=== PATIENT | female | born 1965 | race Caucasian/White ===

== ENCOUNTER → 2023-06-12 11:18 | Outpatient (REF) | payer OTHER, SELFPAY | LOC: WDC 11:18 | PROVIDERS: ATTENDING PHYSICIAN Internal Medicine | DX: Z12.31 Encounter for screening mammogram for malignant neoplasm of breast (principal) | CPT/HCPCS: 77063; 77067 ==

== ENCOUNTER 2024-01-13 22:56 | Inpatient (IN) | payer OTHER, SELFPAY ==
[2024-01-13] VITALS (8 sets, daily range): BP systolic 122–153; BP diastolic 82–116; BMI 42.6; BMI 41.2
--- NOTE | 2024-01-13 19:56 | ED.GENMED ---
History of Present Illness
General
Chief Complaint: Breathing Problem
Time Seen by Provider: 01/13/24 19:53
History of Present Illness
History of Present Illness:
HPI: Patient presents with shortness of breath over the last few days. He feels that his symptoms worsen with exertion when she lays down flat. She has a history of asthma but does not think this is asthma related. She reports having an x-ray at
urgent care. They did not give any breathing treatments at urgent care. She has had some lower extremity edema over the last few weeks. She had some left-sided anterior chest discomfort a few days ago but that went away.
EXAM:
GENERAL: Well appearing in minimal distress
HEENT: Moist oral mucosa
CARDIOVASCULAR: No murmurs, normal heart rate, regular rhythm, No chest wall tenderness
PULMONARY: Very mild respiratory distress, breath sounds are clear but somewhat diminished with no wheeze
ABDOMEN: Soft with no peritoneal signs, no tenderness
NEUROLOGIC: Excellent strength all extremities, no coordination deficits
PSYCHIATRIC: Appropriate mental status, normal insight and judgement
EXTREMITIES: Nontender, trace lower extremity edema, moves all extremities equally
SKIN: No rash, no lesions
TIME OF INITIAL ENCOUNTER: 8 PM
NUMBER AND COMPLEXITY OF PROBLEMS ADDRESSED AT THE ENCOUNTER
� Chronic conditions affecting care: Asthma
� Acute Exacerbation and/or Progression of Chronic Illness: This is an acute problem
� Differential Diagnosis includes: PE, asthma exacerbation, reactive airway disease, pneumonia, viral syndrome
AMOUNT AND/OR COMPLEXITY OF DATA TO BE REVIEWED AND ANALYZED
� I performed an independent evaluation of and my interpretation is:
EKG: Sinus 114, nonspecific ST abnormality, IVCD
CT: CT shows no PE however there is signs of a right sided pleural effusion
X-rays:
Laboratory Studies: Troponin 0.016 and BNP 10,800, of note bicarb is only 16 and potassium is 5.7 CBC is relatively unremarkable.
Other:
� Review of other/old records: The patient was seen here in the Emergency Department 2018 related to vomiting and at that time was relatively unremarkable
� Clinical information was obtained by an independent historian: I spoke to family at bedside
� Prescriptions/Medications Considered but not given:
� Further testing considered but not performed:
RISK OF COMPLICATIONS AND/OR MORBIDITY OR MORTALITY OF PATIENT MANAGEMENT
� Social determinants of health affecting care: Lives at home
� Discussion with other providers: Hospitalist, Dr. Santamaria for admission at 10:12 PM
� Escalation of care including admission/observation vs risk of discharge considered: The patient presents with shortness of breath. She is tachycardic. She is orthopneic and had lower extremity edema. BNP markedly
elevated�suspect CHF. Potassium also noted to be elevated and she was given albuterol, Lokelma, and Lasix. Bicarb also noted to be low. CTA has ruled out PE but she also does have a small pleural effusion on imaging.
Past History
Past History
ED Past Medical History: Asthma (typiclly uses inhaler as needed and hasn't needed it in several months.)
ED Past Surgical History: Gynecological
Social History
Tobacco: Non-smoker
Alcohol: Occasional
Personal:
Living: with family
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
Phy Exam
Physical Exam
Physical Exam:
See HPI
Scores
Heart Failure Risk
Heart Failure Risk Score: Not Applicable
Course
Orders/Labs/Results
Orders:
Orders
01/13/24 19:47
ECG [Electrocardiogram (*1)] Urgent
Reason for Study: Shortness of Breath
EKG- Treatment ONCE
01/13/24 20:02
CT Chest Pe Study Urgent
Comment:
Reason For Exam: DEVI/SOB, clear lungs
01/13/24 20:03
Ipratropium/Albuterol Sulfate [Duoneb] 3 ml INH R NOW ONE
01/13/24 20:05
Basic Metabolic Panel Urgent
Complete Blood Count/With Diff Urgent
Manual Differential Urgent
NT-proBNP Urgent
Troponin I Urgent
01/13/24 22:05
Furosemide [Lasix] 40 mg IV NOW STA
01/13/24 22:06
Sodium Zirconium Cyclosilicate [Lokelma] 10 gram PO NOW STA
Abnormal Lab Results
01/13/24
20:05
WBC 11.5 H 10^3/uL
(4.8-10.8)
MCHC 32.6 L g/dL
(33.0-37.0)
MPV 11.3 H fL
(7.4-10.4)
Abs Neuts (Manual) 8.0 H 10^3/uL
(1.4-6.5)
Lymphocytes (Manual) 14 L %
(20-51)
Eosinophils (Manual) 10 H %
(0-6)
Potassium 5.7 H mmol/L
(3.5-5.1)
Carbon Dioxide 16 L mmol/L
(22-30)
BUN 28 H mg/dl
(7-17)
Glucose 114 H mg/dl
(70-99)
01/13/24 20:05
01/13/24 20:05
Vital Signs
Initial and Last Documented VS:
Initial Vital Signs
Temp Pulse Resp BP Pulse Ox
97.6 F 112 20 148/105 95
01/13/24 19:40 01/13/24 19:40 01/13/24 19:40 01/13/24 19:40 01/13/24 19:40
Last Documented Vital Signs
Temp Pulse Resp BP Pulse Ox
97.6 F 100 22 152/98 93
01/13/24 19:40 01/13/24 22:00 01/13/24 22:00 01/13/24 22:00 01/13/24 22:00
*Critical Care Note
Total Time (30-74mins, 75-104mins- exclusive of procedures): Not Applicable
ED Attending Note
-
Portions of this chart may have been created with voice recognition software.� Occasional wrong word or��sound alike� substitutions may have occurred due to the inherent limitations of voice recognition software.
Discharge Plan
Departure
Patient Disposition: Admit
Date of Disposition: 01/13/24
Time of Disposition: 22:12
Presentation/result/management discussed w/ accepting MD/DO: Hospitalist
Discharge Problem:
Acute dyspnea
Prescriptions:
No Action
methylprednisolone [Medrol (Larry)] 4 MG tablets,dose pack
4 tab PO . DIRECT Qty: 1 0RF
Rx Instructions:
.
benzonatate 100 MG capsule
100 mg PO TIDPRN PRN (Reason: cough) Qty: 30 0RF
albuterol sulfate 90 MCG/PUFF HFA aerosol inhaler
1 puff inhalation R Q4HPRN PRN (Reason: wheezing) Qty: 1 0RF
ondansetron 4 MG tablet,disintegrating
4 mg PO Q8HPRN PRN (Reason: Nausea/Vomiting) Qty: 10 0RF
Referrals:
Brad Murray MD [Family Provider] -
Interventions
Interventions:
*Risk Screen - Suicide Last Done: 01/13/24 19:40
*General Assessment Last Done: 01/13/24 19:40
*Neglect/Abuse Screening Last Done: 01/13/24 19:40
ED- Fall Risk Assessment Last Done: 01/13/24 19:56
ED- Cardiac Assessment Last Done: 01/13/24 19:56
ED- Pulmonary Assessment Last Done: 01/13/24 19:56
Discharge Date and Time
Print Language: ISRAELI
[2024-01-13] MEDS: DUONEB 3 ML INH (20:09)
[2024-01-13 20:29] LABS: Hematocrit 41.7 % (37.0-47.0); Hemoglobin 13.6 g/dL (12.0-16.0); Mean Corp Hgb Conc. 32.6 g/dL (33.0-37.0); Mean Corpuscular Volume 91.9 fL (81.0-99.0); Mean Platelet Volume 11.3 fL (7.4-10.4); Platelet Count 262 10^3/uL (130-400); Red Blood Cell Count 4.54 10^6/uL (4.20-5.40); Red Cell Dist. Width 14.4 % (11.5-14.5); White Blood Cell Count 11.5 10^3/uL (4.8-10.8)
[2024-01-13 20:31] LABS: Blood Urea Nitrogen 28 mg/dl (7-17); Calcium 9.9 mg/dl (8.4-10.2); Carbon Dioxide 16 mmol/L (22-30); Chloride 106 mmol/L (98-107); Estimated Creatinine Clearance 76 ml/min; Glucose 114 mg/dl (70-99); Potassium 5.7 mmol/L (3.5-5.1); Sodium 137 mmol/L (135-145); eGFR > 60.00
[2024-01-13 20:37] LABS: NT-proBNP 10800 pg/ml; Troponin I 0.016 ng/ml
[2024-01-13 20:41] LABS: Band Neutrophils 0 % (0-3); Eosinophils 10 % (0-6); Lymphocytes 14 % (20-51); Monocytes 6 % (2-9); Normal RBC Morphology Yes; Platelets Checked Yes; Segmented Neutrophils 70 % (42-75); Total Cells Counted 100
[2024-01-13] MEDS: LASIX 40 MG IV (22:10)
[2024-01-13] MEDS: LOKELMA 10 GRAM PO (22:10)
--- NOTE | 2024-01-13 22:45 | HPS.HSE ---
Family Physician
-
Family Physician: Brad Murray
Chief Complaint
-
shortness of breath
History of Present Illness
58-year-old female past medical history of asthma presenting with shortness of breath over the past few weeks. Shortness of breath occurs when she lies down flat and when she exerts herself. She has had increased lower extremity edema. She had
left-sided chest pain described as pressure which radiated to her arm a few days ago while she was trying to sleep which spontaneously went away.
She denies any fevers or chills. She denies any cough. She denies any sore throat or runny nose. She did have a viral infection 1 month ago which had resolved.
Her father had a history of congestive heart failure.
She denies smoking. She drinks alcohol occasionally. She denies any drugs.
Medical History
Past Medical History
Past Medical History: Reports Other (asthma)
Past Surgical History: Reports Other (Uterine fibroid surgery)
Social History
Tobacco: Non-smoker
Alcohol: Occasional
Drug: None
Family History
Family History: Other (CHf father )
Allergies / Home Medications
Allergies reflects when Allergies were last updated in [facility].
Home Medications with original date entered in [facility]
Allergy/Medication List:
Allergies
Allergy/AdvReac Type Severity Reaction Status Date / Time
No Known Allergies Allergy Verified 01/13/24 19:40
Home Medications
albuterol sulfate 90 mcg/actuation aerosol inhaler 1 puff inhalation R Q4HPRN PRN wheezing ##1 06/24/13
benzonatate 100 mg capsule 100 mg PO TIDPRN PRN cough #30 caps 06/24/13
methylprednisolone 4 mg tablets in a dose pack (Medrol (Larry)) 4 tab (4 x 4 mg) PO . DIRECT ##1 06/24/13
ondansetron 4 mg disintegrating tablet 4 mg PO Q8HPRN PRN Nausea/Vomiting #10 tabs 09/21/17
Review of Systems
-
History Source: Patient
A 12 point ROS was completed and negative except as noted: Yes
Constitutional: Reports No Symptoms
EENT: Reports No Symptoms
Respiratory: Reports See HPI
Cardiac: Reports See HPI
Abdomen/GI: Reports No Symptoms
: Reports No Symptoms
Musculoskeletal: Reports No Symptoms
Skin: Reports No Symptoms
Neurological: Reports No Symptoms
Endocrine: Reports No Symptoms
Hematologic/Lymphatic: Reports No Symptoms
Psych: Reports No Symptoms
Physical Exam
Vital Signs
Vital Signs
Temp Pulse Resp BP Pulse Ox
97.6 F 104 18 152/98 95
01/13/24 19:40 01/13/24 22:15 01/13/24 22:15 01/13/24 22:00 01/13/24 22:15
Physical Exam
General: Well Developed, Well Nourished and No Apparent Distress
HEENT: NormoCephalic, Moist mucous membranes and Atraumatic
Respiratory: Rales
Cardiac: S1/S2, Regular Rhythm and Peripheral Edema; No Murmur or Rub
GI: Soft, Non Tender, Non Distended and Normal Bowel Sounds; No Organomegaly
Rectal: Deferred by Provider
Musculoskeletal: No Clubbing, No Cyanosis and No Edema
Skin: No Rash
Neuro: Nonfocal/grossly intact
Laboratory Results
-
01/13/24 20:05
01/13/24 20:05
Laboratory Results
Troponin I 0.016 ng/ml 01/13/24 20:05
Data Reviewed
-
Lab Data: Labs Reviewed by me
Old Records: Reviewed
Impression/Plan
-
IMPRESSION:
PLAN:
# Acute CHF exacerbation
-CT PE shows no evidence of pulmonary embolism and there is some opacification of the right lower lobe which could represent atelectasis/pneumonia and small right pleural effusion
-Cardiac BNP of 10,000
-EKG shows nonspecific intraventricular conduction block with PVCs, sinus tachycardia
-Check I's and O's, daily weights
-Check echo
-40 IV Lasix daily
-Cardiology consulted
# Widespread hilar lymphadenopathy likely reactive from recent viral infection
-No cough or fever to indicate current respiratory infection
-History not suggestive of malignancy
# Hyperkalemia secondary to abnormal potassium handling in the setting of CHF
-Lokelma given
-Monitor with diuresis
Asthma
-Continue albuterol
Full code
DVT prophylaxis�heparin
Cardiac diet
--- NOTE | 2024-01-13 23:57 | PTCARENOTE ---
Pt arrived from ED via stretcher and ambulated to bed w/ family members at bedside. Pt is AAOx3, VSS, and w/o complaints of pain. Pt is resting comfortably w/ call [place] within reach.
[2024-01-14] VITALS (7 sets, daily range): BP systolic 112–132; BP diastolic 78–96; BMI 41.2
[2024-01-14 07:01] LABS: Hematocrit 37.8 % (37.0-47.0); Hemoglobin 12.5 g/dL (12.0-16.0); Mean Corp Hgb Conc. 33.1 g/dL (33.0-37.0); Mean Corpuscular Hgb 29.3 pg (27.0-31.0); Mean Corpuscular Volume 88.5 fL (81.0-99.0); Mean Platelet Volume 11.1 fL (7.4-10.4); Platelet Count 225 10^3/uL (130-400); Red Blood Cell Count 4.27 10^6/uL (4.20-5.40); Red Cell Dist. Width 14.6 % (11.5-14.5); White Blood Cell Count 9.5 10^3/uL (4.8-10.8)
[2024-01-14 07:25] LABS: ALT (SGPT) 121 U/L (0-35); AST (SGOT) 114 U/L (14-36); Albumin 3.5 g/dl (3.5-5.0); Alkaline Phosphatase 152 U/L (38-126); Blood Urea Nitrogen 27 mg/dl (7-17); Calcium 9.5 mg/dl (8.4-10.2); Carbon Dioxide 22 mmol/L (22-30); Chloride 105 mmol/L (98-107); Estimated Creatinine Clearance 62 ml/min; Glucose 80 mg/dl (70-99); Potassium 4.5 mmol/L (3.5-5.1); Sodium 141 mmol/L (135-145); Total Bilirubin 1.1 mg/dl (0.2-1.3); Total Protein 5.9 g/dl (6.3-8.2)
[2024-01-14] MEDS: LASIX 40 MG IV (08:12)
[2024-01-14] MEDS: HEPARIN 5000 UNITS SC ×2 (08:12→19:40)
[2024-01-14 09:17] LABS: % Basophils 1.1 % (0-2); % Eosinophils 24.2 % (0-6); % Immature Granulocytes 0.1 % (0-0.5); % Lymphocytes 24.8 % (20.5-51.1); % Monocytes 6.6 % (1.7-9.3); % Neutrophils 43.2 % (42.2-75.2); Absolute Basophils 0.1 10^3/uL (0-0.2); Absolute Eosinophils 2.3 10^3/uL (0-0.7); Absolute Lymphocytes 2.4 10^3/uL (1.2-3.4); Absolute Monocytes 0.6 10^3/uL (0.1-0.6); Absolute Neutrophils 4.1 10^3/uL (1.4-6.5); Nucleated Red Blood Cells % 0 %
--- NOTE | 2024-01-14 10:06 | W.PN.HOSP.TC ---
Addendum entered and electronically signed by Elyssa Camargo MD 01/14/24 14:04:
eosinophilia - may be from recent viral illness?
-repeat CBC with diff tomorrow AM
Original Note:
Today's Communication/Plan
-
-see plan
Assessment / Plan
Assessment / Plan
chest CT
IMPRESSION:
No evidence of central pulmonary embolism.
Some opacification in the right lower lobe which could represent atelectasis and/or pneumonia and small right pleural effusion.
Widespread mediastinal and to a lesser extent bilateral hilar low-attenuation lymphadenopathy. Although findings may be on an inflammatory/infectious basis, malignancy is the diagnosis of exclusion.
Mildly enlarged, predominantly homogeneous thyroid gland.
# Acute CHF exacerbation
-CT PE shows no evidence of pulmonary embolism and there is some opacification of the right lower lobe which could represent atelectasis/pneumonia and small right pleural effusion
-Cardiac BNP of 10,000
-EKG shows nonspecific intraventricular conduction block with PVCs, sinus tachycardia
-Check I's and O's, daily weights
-Check echo
-40 IV Lasix daily
-Cardiology consult appreciated
# Widespread hilar lymphadenopathy likely reactive from recent viral infection
-No cough or fever to indicate current respiratory infection. leukocytosis resolved with diuresis
-History not suggestive of malignancy
-likely needs repeat CT scan in 1-2 months
# Hyperkalemia secondary to abnormal potassium handling in the setting of CHF
-Lokelma given
-Monitor with diuresis
-hyperkalemia resolved this AM
Abnormal Thyroid Imaging
-add on TSH with relfex T4
Thyroid US as outpatient
Transaminitis
-no abdominal pain
-will obtain US abdomen tomorrow AM
Asthma
-Continue albuterol
Full code
DVT prophylaxis�heparin
Cardiac diet
Anticipated Discharge: 24 - 48 hours
Subjective/Interval History
-
Date of Service: January 14, 2024
breathing much improved
no swelling
no fevers/chills
no abdominal pain
eating and drinking well
Objective Data
-
Labs:
Laboratory Results
01/14/24
06:41
WBC 9.5
Hgb 12.5
Hct 37.8
Plt Count 225
Sodium 141
Potassium 4.5
Chloride 105
Carbon Dioxide 22
BUN 27 H
Creatinine 1.2 H
Glucose 80
Calcium 9.5
Total Bilirubin 1.1
AST 114 H
ALT 121 H
Alkaline Phosphatase 152 H
Vital Signs:
Vital Signs
Temp Pulse Resp BP Pulse Ox
97.9 F 94 18 132/96 96
01/14/24 07:30 01/14/24 07:30 01/14/24 07:30 01/14/24 07:30 01/14/24 07:30
I&O
01/13/24 01/14/24 01/15/24
06:59 06:59 06:59
Output Total 1275 / 1275
Balance -1275 / -1275
Review of Systems
-
History Source: Patient
All other systems: Reviewed and negative
Physical Exam
-
General: No Apparent Distress
HEENT: PERRLA
Respiratory: Clear to Auscultation; Negative Wheezes
Cardiac: Regular Rhythm and S1/S2
GI: Soft, Nontender and Other (no rebound or guarding)
Musculoskeletal: No Edema
Skin: Warm and Dry; Negative Rash
Data Reviewed
-
Diagnostic Radiology: Report Reviewed by me
Labs: Labs Reviewed by me
--- NOTE | 2024-01-14 10:57 | CON.CAR ---
Consultation
Consultation Request
Date/Time Consultation Requested: 01/14/2024 7: 00
Date/Time Consultation Performed: 01/14/2024 9: 00
Requesting Provider: Mary Jo
Performing Provider: Yamile
Reason for Consultation: CHF
Medical History
-
Chief Complaint: Shortness of breath
History of Present Illness:
Merle has a history of asthma. She has had shortness of breath for several weeks. She initially thought it might be asthma. However she has noted short of breath for the past 2 nights with lying flat. She has noted some edema as well. She
also had chest pain 3-4 nights ago described as an ache. It lasted an hour to hour and a half and did not recur. She came to the ER and is admitted with CHF.
Past Medical History
Past Medical History: Asthma
Past Surgical History: None
Social History
Tobacco: Non-Smoker
Alcohol: Occasional
Drug: None
Personal:
Living: With Family
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
Family History
Family History: Other (Father has CHF)
Allergies / Home Medications
Allergy/AdvReac Type Severity Reaction Status Date / Time
No Known Allergies Allergy Verified 01/13/24 19:40
�Medication �Instructions �Recorded �Confirmed �Type
albuterol sulfate 90 mcg/actuation 1 puff inhalation R Q4HPRN PRN 06/24/13 01/14/24 Rx
aerosol inhaler wheezing ##1
benzonatate 100 mg capsule 100 mg PO TIDPRN PRN cough #30 caps 06/24/13 01/14/24 Rx
ondansetron 4 mg disintegrating 4 mg PO Q8HPRN PRN Nausea/Vomiting 09/21/17 01/14/24 Rx
tablet #10 tabs
methylprednisolone 4 mg tablets in 4 tab PO . DIRECT INFLAMMATION 01/14/24 01/14/24 History
a dose pack (Medrol (Larry))
Review of Systems
-
History Source: Patient
All other systems: Negative unless noted
Constitutional: No Symptoms
EENT: No Symptoms
Respiratory: Trouble Breathing
Cardiac: Chest Pain
Abdomen/GI: No Symptoms
: No Symptoms
Musculoskeletal: Edema and Other ('Charley horse' in calves)
Skin: No Symptoms
Neurological: No Symptoms
Endocrine: No Symptoms
Hematologic/Lymphatic: No Symptoms
Physical Exam
Vital Signs
Temp Pulse Resp BP Pulse Ox
97.9 F 94 18 132/96 96
01/14/24 07:30 01/14/24 07:30 01/14/24 07:30 01/14/24 07:30 01/14/24 07:30
Lab Results
01/14/24 06:41
01/14/24 06:41
Troponin I 0.016 ng/ml 01/13/24 20:05
Fqy-Q-Bkhmunhyyco Pept 93709 pg/ml 01/13/24 20:05
General: Well developed, well nourished in NAD.
Neck: Supple, no JVD, HJR, carotids +2 B/L, no bruits bilaterally.
Heart: Non displaced PMI, RRR, no murmurs, No S3, S4, no rubs.
Lungs: Scattered rhonchi at the bases
Abdomen: Normal bowel sounds, soft, non-tender, non-distended.
Extremities: No clubbing, cyanosis or edema bilaterally.
Neuro: Grossly nonfocal, awake, alert and oriented x3.
Impression / Plan
-
Impression:
CHF
Abnormal CT scan with hilar adenopathy and enlarged thyroid gland
History of asthma
Left bundle branch block
Hyperkalemia�resolved
Mild renal insufficiency
Abnormal liver function test
Plan
Will treat for CHF with IV Lasix
Further treatment will depend on results of echocardiogram
Consider eventual ischemic evaluation with left bundle branch block and CAD may be noted in these patients
Abnormal CAT scan felt to be due to recent viral illness but repeat CAT scan will be done
Check thyroid function test with abnormal CAT scan of the thyroid
Follow renal function with diuresis
Data Reviewed
-
EKG: Tracing Personally Visualized and interpreted
Radiology: Report Reviewed by me
CT Scan: Report Reviewed by me
Medical Tests (Nuc Med, Echo etc): Report Reviewed by me
Labs: Labs Reviewed by me
Old Records: Reviewed
[2024-01-14 11:38] LABS: TSH Reflex To Free T4 1.04 uIU/ml (0.47-4.68)
--- NOTE | 2024-01-14 11:43 | CM ---
Patient seen at bedside with present. Patient stated that she lives with her in a 2 story home. patient has a nebulizer at home and stated that she has no other DME. Patient PCP is Dr. Murray and she uses the [facility] in [place]. Patient
stated that she did not anticipate any discharge planning needs at this time. CM will continue to follow for discharge planning needs.
Plan; home with no needs anticipated
[2024-01-15 03:11] VITALS: BP 123/76
[2024-01-15 06:00] VITALS: BMI 39.5
[2024-01-15 07:25] VITALS: BP 124/80
[2024-01-15 07:31] LABS: Hematocrit 42.5 % (37.0-47.0); Hemoglobin 13.7 g/dL (12.0-16.0); Mean Corp Hgb Conc. 32.2 g/dL (33.0-37.0); Mean Corpuscular Hgb 28.6 pg (27.0-31.0); Mean Corpuscular Volume 88.7 fL (81.0-99.0); Mean Platelet Volume 11.3 fL (7.4-10.4); Platelet Count 256 10^3/uL (130-400); Red Blood Cell Count 4.79 10^6/uL (4.20-5.40); Red Cell Dist. Width 14.6 % (11.5-14.5); White Blood Cell Count 11.4 10^3/uL (4.8-10.8)
[2024-01-15 08:06] LABS: % Basophils 1.1 % (0-2); % Eosinophils 41.2 % (0-6); % Immature Granulocytes 0.2 % (0-0.5); % Lymphocytes 20.5 % (20.5-51.1); % Monocytes 4.9 % (1.7-9.3); % Neutrophils 32.1 % (42.2-75.2); Absolute Basophils 0.1 10^3/uL (0-0.2); Absolute Eosinophils 4.7 10^3/uL (0-0.7); Absolute Lymphocytes 2.3 10^3/uL (1.2-3.4); Absolute Monocytes 0.6 10^3/uL (0.1-0.6); Absolute Neutrophils 3.7 10^3/uL (1.4-6.5); Nucleated Red Blood Cells % 0 %
[2024-01-15 08:32] LABS: ALT (SGPT) 120 U/L (0-35); AST (SGOT) 88 U/L (14-36); Albumin 3.8 g/dl (3.5-5.0); Alkaline Phosphatase 146 U/L (38-126); Blood Urea Nitrogen 27 mg/dl (7-17); Calcium 9.3 mg/dl (8.4-10.2); Carbon Dioxide 27 mmol/L (22-30); Chloride 102 mmol/L (98-107); Estimated Creatinine Clearance 61 ml/min; Glucose 93 mg/dl (70-99); Magnesium 2.1 mg/dl (1.6-2.3); Potassium 4.5 mmol/L (3.5-5.1); Sodium 141 mmol/L (135-145); Total Bilirubin 1.2 mg/dl (0.2-1.3); Total Protein 6.4 g/dl (6.3-8.2)
[2024-01-15] MEDS: LASIX 40 MG IV (08:40)
[2024-01-15] MEDS: HEPARIN 5000 UNITS SC ×2 (08:40→19:47)
--- NOTE | 2024-01-15 10:11 | W.PN.HOSP.TC ---
Today's Communication/Plan
-
follow CBC/Eosinophilia
monitor labs
add Coreg
NPO p MN for Cath
Assessment / Plan
Assessment / Plan
Assessment:
Acute HFrEF
- CT PE shows no evidence of pulmonary embolism and there is some opacification of the right lower lobe which could represent atelectasis/pneumonia and small right pleural effusion
- Cardiac BNP of 10,000
- EKG shows nonspecific intraventricular conduction block with PVCs, sinus tachycardia
- Echo: EF 10%. Dilated cardiomyopathy with severely reduced left ventricular systolic function, Dilated right ventricle with mildly reduced RV systolic function, mild to mdoerate MR, TR
- continue IV Lasix, requires intensive monitoring of I/Os, weights, lytes
- add low dose beta-miguel
- Cath planned 01/15
- DCA cards following
Widespread hilar lymphadenopathy likely reactive from recent viral infection (URI)
- no cough/fevers to indicate current infection
- malignancy on differential but no alarm symptoms per history
- repeat CT scan in 1-2 months and follow from there
Hyperkalemia secondary to abnormal potassium handling in the setting of CHF
- resolved, s/p Lokelma and diuresis
Abnormal Thyroid Imaging on CT
- TSH normal
- OP Thyroid US
Transaminitis, likely passive congestion from CHF
- no abdominal pain
- US Abd normal
- LFTs improving
Asthma
- continue albuterol, Trelegy
- no recent flares
Eosinophilia
- obtain records of CBC from PCP
- no new recent meds
- no systemic symptoms of eosinophilic syndrome
- OP f/u, may need OP Heme eval
DVT ppx: SC heparin
Code: Full
Anticipated Discharge: > 48 hours
Subjective/Interval History
-
Date of Service: January 15, 2024
denies SOB or chest pain
EF 10% on Echo this AM, patient informed
Objective Data
-
Labs:
Laboratory Results
01/15/24
06:46
WBC 11.4 H
Hgb 13.7
Hct 42.5
Plt Count 256
Sodium 141
Potassium 4.5
Chloride 102
Carbon Dioxide 27
BUN 27 H
Creatinine 1.2 H
Glucose 93
Calcium 9.3
Total Bilirubin 1.2
AST 88 H
ALT 120 H
Alkaline Phosphatase 146 H
Vital Signs:
Vital Signs
Temp Pulse Resp BP Pulse Ox
98.2 F 87 12 124/80 94
01/15/24 07:25 01/15/24 08:40 01/15/24 07:25 01/15/24 08:40 01/15/24 08:00
I&O
01/14/24 01/15/24 01/16/24
06:59 06:59 06:59
Intake Total 240 / 240
Output Total 1275 / 1275 3620 / 3620
Balance -1275 / -1275 -3380 / -3380
Physical Exam
-
General: No Apparent Distress
HEENT: Normocephalic and Atraumatic
Respiratory: Negative Wheezes
Cardiac: Regular Rhythm and S1/S2
GI: Soft
Genito-urinary: No Costovertebral Tender
Neuro: AO x 3
Hematologic / Lymphatic: No Lymphadenopathy
Psych: Calm
Data Reviewed
-
Total Time Spent with Patient (in minutes): 51
Labs: Labs Reviewed by me
--- NOTE | 2024-01-15 11:03 | W.PN.CARDCBS ---
Addendum entered and electronically signed by Paul Ovalle MD 01/15/24 12:39:
I saw and examined the patient.
The COPY CENTER SPECIALIST or PA's note was reviewed and I agree with the note.
Comment: General: Well developed, well nourished in NAD.
Neck: Supple, no JVD, HJR, carotids +2 B/L, no bruits bilaterally.
Heart: Non displaced PMI, RRR, no murmurs, No S3, S4, no rubs.
Lungs: Clear to auscultation bilaterally, no wheeze, rhonchi, rubs bilaterally,
normal expiratory phase.
Extremities: No clubbing, cyanosis or edema bilaterally.
Neuro: Grossly nonfocal, awake, alert and oriented x3.
Ejection fraction is severely reduced at 10%. Etiology unclear but need to exclude CAD. Will do left and right heart catheterization on Monday 01/15. Will start Coreg. Eventual VISHAL inhibitor or Entresto if renal function remains stable.
Eventual Aldactone if blood pressure tolerates and renal function remains stable. Hold Lasix on 01/15 with mild renal insufficiency and check right heart catheterization. Discussed with patient and in detail for an additional 20 minutes.
Total visit time 50 minutes.
Original Note:
Today's Communication / Plan
-
Start Coreg 3.125 mg twice a day
N.p.o. after midnight
Right/left heart catheterization 01/16/2024
Hold diuresis a.m. of 01/16/2024 in anticipation of catheterization
Impression / Plan
-
Family Physician: Brad Murray
Tape Edge Machine Operator: None prior to admission, initial consultation Dr. Ovalle
Impression:
Presented 01/13/2024 with shortness of breath, orthopnea and chest pain
Acute heart failure with reduced ejection fraction, proBNP 10,800
Cardiomyopathy, new diagnosis, unknown etiology
Left bundle branch block
Abnormal CT scan with hilar adenopathy and enlarged thyroid gland
History of asthma
Left bundle branch block
Hyperkalemia�resolved
Mild renal insufficiency
Abnormal liver function test
Echo 01/15/2024: EF 10%. Dilated cardiomyopathy with severely reduced left ventricular function. Dilated right ventricle with mildly reduced RV systolic function, mild to moderate MR, mild to moderate TR. PAP 58 mmHg. IVC is dilated and does not
collapse.
Plan
Presented 01/13/2024 with shortness of breath, orthopnea/PND. Patient also reported she had chest pain with radiation into her arm several days prior to arrival. She has been chest pain-free since here
EF noted to be 10% on echocardiogram 01/15/2024. This is new diagnosis. Patient will need cardiac catheterization. Given mildly reduced RV systolic function and dilated right ventricle will do both right and left heart cath.
Acute heart failure with reduced ejection fraction. Patient has lost at least 10 pounds since admission if scales are correct. Symptomatically feeling better and walking the halls
Slight bump in creatinine overnight. Currently 1.2. Would hold Lasix 01/16/2024 in anticipation of cardiac catheterization
Potassium improved
Will start carvedilol 3.125 mg twice a day. Will eventually need GDMT w/ VISHAL/ARB or Arni, Aldactone and SGLT2 inhibitor
Abnormal CT scan 'Widespread mediastinal and to a lesser extent bilateral hilar low-attenuation lymphadenopathy. Although findings may be on an inflammatory/infectious basis, malignancy is the diagnosis of exclusion.' [place] to be due to recent viral
illness but will need repeat CT scan as outpt in 1 to 2 months
Noted to have mildly enlarged thyroid gland on CT. TSH within normal limits. Will need outpatient thyroid ultrasound
Abnormal LFTs, likely passive congestion from heart failure. Abdominal ultrasound showed gallstones without obstruction. LFTs improving with diuresis
Plan discussed with nursing, primary service, cardiology, patient in great detail
Progress Note - Tape Edge Machine Operator
Subjective
Date of Service: January 15, 2024
feeling less SOB, denies chest pain
Objective
Labs:
01/15/24 06:46
01/15/24 06:46
Labs
Hgb 13.7 g/dL (12.0-16.0) 01/15/24 06:46
Hct 42.5 % (37.0-47.0) 01/15/24 06:46
Plt Count 256 10^3/uL (130-400) 01/15/24 06:46
Sodium 141 mmol/L (135-145) 01/15/24 06:46
Potassium 4.5 mmol/L (3.5-5.1) 01/15/24 06:46
BUN 27 mg/dl (7-17) H 01/15/24 06:46
Creatinine 1.2 mg/dL (0.6-1.0) H 01/15/24 06:46
Glucose 93 mg/dl (70-99) 01/15/24 06:46
Troponins
01/13/24
20:05
Troponin I 0.016
Vital Signs and I&O:
Vital Signs
Temp Pulse Resp BP Pulse Ox
98.2 F 87 12 124/80 94
01/15/24 07:25 01/15/24 08:40 01/15/24 07:25 01/15/24 08:40 01/15/24 08:00
Vital Signs
Temp Pulse Resp BP Pulse Ox
98.2 F 87 12 124/80 94
01/15/24 07:25 01/15/24 08:40 01/15/24 07:25 01/15/24 08:40 01/15/24 08:00
Intake & Output
01/13/24 01/14/24 01/15/24 01/16/24
06:59 06:59 06:59 06:59
Intake Total 240 / 240
Output Total 1275 / 1275 3620 / 3620
Balance -1275 / -1275 -3380 / -3380
--- NOTE | 2024-01-15 12:00 | CHAP ---
Fr. Vin Kang of [facility] in [place] anointed Merle. Time uncertain.
[2024-01-15] MEDS: COREG 3.125 MG PO ×2 (12:01→19:47)
[2024-01-15 15:25] VITALS: BP 127/82
[2024-01-15 19:05] VITALS: BP 110/73
[2024-01-15] MEDS: VENTOLIN NEBULES 2.5 MG INH (22:21)
[2024-01-15] MEDS: MELATONIN 5 MG PO (22:54)
[2024-01-15 23:17] VITALS: BP 112/71
[2024-01-16] VITALS (14 sets, daily range): BP systolic 94–127; BP diastolic 50–78; BMI 39.0
[2024-01-16] MEDS: COREG 3.125 MG PO (08:04)
[2024-01-16] MEDS: FLUSH (NSS) 1 FLUSH IV ×2 (08:04→20:37)
[2024-01-16] MEDS: HEPARIN SC (08:06)
[2024-01-16 08:29] LABS: Hematocrit 43.6 % (37.0-47.0); Mean Corp Hgb Conc. 32.1 g/dL (33.0-37.0); Mean Corpuscular Hgb 28.9 pg (27.0-31.0); Mean Corpuscular Volume 89.9 fL (81.0-99.0); Platelet Count 240 10^3/uL (130-400); Red Blood Cell Count 4.85 10^6/uL (4.20-5.40); Red Cell Dist. Width 14.5 % (11.5-14.5); White Blood Cell Count 11.7 10^3/uL (4.8-10.8)
--- NOTE | 2024-01-16 08:41 | W.PN.HOSP.TC ---
Today's Communication/Plan
-
for Cath today
Assessment / Plan
Assessment / Plan
Assessment:
Acute HFrEF
- CT PE shows no evidence of pulmonary embolism and there is some opacification of the right lower lobe which could represent atelectasis/pneumonia and small right pleural effusion
- Cardiac BNP of 10,000
- EKG shows nonspecific intraventricular conduction block with PVCs, sinus tachycardia
- Echo: EF 10%. Dilated cardiomyopathy with severely reduced left ventricular systolic function, Dilated right ventricle with mildly reduced RV systolic function, mild to mdoerate MR, TR
- continue monitoring of I/Os, weights, lytes
- hold Lasix for cath
- continue beta-miguel
- Cath planned 01/15
- DCA cards following
Widespread hilar lymphadenopathy likely reactive from recent viral infection (URI)
- no cough/fevers to indicate current infection
- malignancy on differential but no alarm symptoms per history
- repeat CT scan in 1-2 months and follow from there
Hyperkalemia secondary to abnormal potassium handling in the setting of CHF
- resolved, s/p Lokelma and diuresis
Abnormal Thyroid Imaging on CT
- TSH normal
- OP Thyroid US
Transaminitis, likely passive congestion from CHF
- no abdominal pain
- US Abd normal
- LFTs improving
Asthma
- continue albuterol, Trelegy
- no recent flares
Eosinophilia
- obtain records of CBC from PCP
- no new recent meds
- no systemic symptoms of eosinophilic syndrome
- OP f/u, may need OP Heme eval
DVT ppx: SC heparin
Code: Full
Anticipated Discharge: 24 - 48 hours
Subjective/Interval History
-
Date of Service: January 16, 2024
denies any new complaints such as chest pain or SOB
for cath today
Objective Data
-
Labs:
Laboratory Results
01/16/24
07:48
WBC 11.7 H
Hgb 14.0
Hct 43.6
Plt Count 240
Sodium Pending
Potassium Pending
Chloride Pending
Carbon Dioxide Pending
BUN Pending
Creatinine Pending
Glucose Pending
Calcium Pending
Total Bilirubin Pending
AST Pending
ALT Pending
Alkaline Phosphatase Pending
Vital Signs:
Vital Signs
Temp Pulse Resp BP Pulse Ox
97.7 F 79 20 127/78 96
01/16/24 07:25 01/16/24 07:25 01/16/24 07:25 01/16/24 07:25 01/16/24 07:25
I&O
01/15/24 01/16/24 01/17/24
06:59 06:59 06:59
Intake Total 240 / 240 900 / 900
Output Total 3620 / 3620 2450 / 2450
Balance -3380 / -3380 -1550 / -1550
Physical Exam
-
General: No Apparent Distress
HEENT: Normocephalic and Atraumatic
Respiratory: Negative Wheezes
Cardiac: Regular Rhythm
GI: Soft
Genito-urinary: No Costovertebral Tender
Hematologic / Lymphatic: No Lymphadenopathy
Psych: Calm
Data Reviewed
-
Total Time Spent with Patient (in minutes): 44
Labs: Labs Reviewed by me
[2024-01-16 08:52] LABS: ALT (SGPT) 99 U/L (0-35); AST (SGOT) 58 U/L (14-36); Albumin 3.7 g/dl (3.5-5.0); Alkaline Phosphatase 121 U/L (38-126); Blood Urea Nitrogen 25 mg/dl (7-17); Calcium 9.4 mg/dl (8.4-10.2); Carbon Dioxide 26 mmol/L (22-30); Chloride 102 mmol/L (98-107); Estimated Creatinine Clearance 66 ml/min; Glucose 85 mg/dl (70-99); Potassium 4.5 mmol/L (3.5-5.1); Sodium 143 mmol/L (135-145); Total Protein 6.3 g/dl (6.3-8.2); eGFR 58.61
--- NOTE | 2024-01-16 09:19 | CM ---
CM notified by Dr. Beckham that Merle will be having a cath today with likely d/c in 24-48 hours.
CM will continue to follow; no needs anticipated for discharge.
--- NOTE | 2024-01-16 09:44 | ITS.CL.CATH ---
Deck Scaler - Catheterization
Cardiac Catheterization
Procedure Report:
LEFT AND RIGHT HEART CATHETERIZATION
Date of Procedure: January 16, 2020
Referring: Paul Yamile
PROCEDURES:
1. Left heart catheterization, coronary angiogram.
2. Ultrasound-guided access.
3. Right heart catheterization
INDICATION: Severe LV systolic dysfunction, LVEF of 10%, pulmonary hypertension by echocardiogram, acute decompensated heart failure
ACCESS:
1. Right renal artery, 5 [place] sheath, under ultrasound guidance.
2. Right brachial vein, 6 [place] sheath
HEMODYNAMICS : (mmHg)
RA (m) : 19
RV (s/d,m) : 59/15, 23
PA (s/d, m) : 62/33, 44
PCWP (m) : 37
PA saturation: 59.7% on room air
AO saturation: 91.4% on room air
SVC saturation: 63.9% on room air
Cardiac Output : 3.46 L/min
Cardiac Index : 1.67 L/min/m-2
Systemic vascular resistance: 1711 dsc^(-5)
Pulmonary vascular resistance: 4.63 moses unit
AO (s/d) : 106/77
LV (s/d) : 109/19
LVEDP : 35
CORONARY FINDINGS
DOMINANCE: Right
LEFT MAIN: Left main artery is a large-caliber vessel which gives rise to the left anterior descending artery and the left circumflex artery. Normal coronary artery.
LEFT ANTERIOR DESCENDING: The left anterior descending artery is a medium caliber vessel which gives rise to 1 major diagonal branch as it courses to the anterior interventricular groove towards the apex. There is minimal luminal irregularities
CIRCUMFLEX: The left circumflex artery is a medium caliber vessel which gives rise to 1 major obtuse marginal branch. There is minimal luminal irregularities.
RIGHT CORONARY ARTERY: The right coronary artery is a large-caliber, dominant vessel which gives rise to the right posterior descending artery and the right posterolateral system. There is minimal luminal irregularities.
SEDATION: 35 minutes of procedural sedation was utilized. An independent emergency medical services coordinator was present to assist with and help manage the patient's level of consciousness and physiologic status.
RADIATION SUMMARY: Fluoro Time (min): 2.6, Dose (mGy): 250.15, DAP (Gy.cm2) : 18.5
Closure Device:
1. Vascular band over right radial artery, 9 cc of air.
2. Manual pressure was held over the right brachial venous access site with successful hemostasis.
CONCLUSIONS
1. No obstructive coronary artery disease.
2. Significantly elevated right and left-sided filling pressures with reduced cardiac output in the setting of severe pulmonary hypertension and elevated systemic vascular resistance.
RECOMMENDATIONS
1. Optimization of goal-directed medical therapy for nonischemic cardiomyopathy and aggressive IV diuretics to improve invasive hemodynamics.
2. Aggressive management of cardiovascular risk factors.
3. Wean radial band per protocol.
4. Reassess LVEF in about 3 months on optimal goal-directed medical therapy and consideration for ICD as needed
Copy to: Paul Ovalle
Cami Clemons MD, FACC, [facility]
[2024-01-16 09:58] LABS: % Basophils 1.4 % (0-2); % Eosinophils 44.6 % (0-6); % Immature Granulocytes 0.2 % (0-0.5); % Lymphocytes 16.6 % (20.5-51.1); % Monocytes 5.2 % (1.7-9.3); Absolute Basophils 0.2 10^3/uL (0-0.2); Absolute Eosinophils 5.2 10^3/uL (0-0.7); Absolute Monocytes 0.6 10^3/uL (0.1-0.6); Absolute Neutrophils 3.8 10^3/uL (1.4-6.5); Nucleated Red Blood Cells % 0 %
[2024-01-16] MEDS: NSS 1000 IV (11:12)
[2024-01-16] MEDS: COZAAR 25 MG PO (12:02)
[2024-01-16] MEDS: LASIX 40 MG IV ×2 (13:39→16:40)
--- NOTE | 2024-01-16 14:17 | CM ---
Med pricing for Farxiga 10mg and Jardiance 10mg requested; Jardiance 10mg is $25 for 90 day supply (and is the preferred medication with Rx coverage) at pt's pharmacy. Farxiga is not covered.
--- NOTE | 2024-01-16 14:18 | CM ---
CM contacted by Eleazar Carey RN. Cherry will be following Merle after discharge for support and can be reached at [phone].
[2024-01-16] MEDS: MIRALAX 17 GRAMS PO (16:39)
[2024-01-16] MEDS: SENOKOT-S 1 TABLET PO ×2 (16:40→20:33)
[2024-01-16] MEDS: FLUSH (NSS) 2 FLUSH IV (16:40)
[2024-01-16] MEDS: HEPARIN 5000 UNITS SC (20:30)
[2024-01-16] MEDS: MELATONIN 5 MG PO (21:59)
[2024-01-17 03:15] VITALS: BP 105/70
[2024-01-17 06:00] VITALS: BMI 38.4
[2024-01-17 07:20] VITALS: BP 107/69
[2024-01-17 08:12] LABS: Hematocrit 43.8 % (37.0-47.0); Hemoglobin 14.2 g/dL (12.0-16.0); Mean Corp Hgb Conc. 32.4 g/dL (33.0-37.0); Mean Corpuscular Hgb 29.6 pg (27.0-31.0); Mean Corpuscular Volume 91.4 fL (81.0-99.0); Platelet Count 218 10^3/uL (130-400); Red Blood Cell Count 4.79 10^6/uL (4.20-5.40); Red Cell Dist. Width 14.5 % (11.5-14.5); White Blood Cell Count 11.3 10^3/uL (4.8-10.8)
[2024-01-17 08:15] LABS: Blood Urea Nitrogen 23 mg/dl (7-17); Calcium 9.1 mg/dl (8.4-10.2); Carbon Dioxide 27 mmol/L (22-30); Chloride 102 mmol/L (98-107); Estimated Creatinine Clearance 65 ml/min; Glucose 86 mg/dl (70-99); Potassium 4.2 mmol/L (3.5-5.1); Sodium 141 mmol/L (135-145); eGFR 58.61
[2024-01-17] MEDS: MIRALAX 17 GRAMS PO (08:44)
[2024-01-17] MEDS: LASIX 40 MG IV ×2 (08:46→16:48)
[2024-01-17] MEDS: FLUSH (NSS) 1 FLUSH IV ×2 (08:46→16:48)
[2024-01-17] MEDS: FARXIGA 10 MG PO (08:47)
[2024-01-17] MEDS: SENOKOT-S 1 TABLET PO (08:47)
[2024-01-17] MEDS: COZAAR 25 MG PO (08:47)
[2024-01-17] MEDS: HEPARIN SC (08:48)
[2024-01-17 08:57] LABS: % Basophils 0.9 % (0-2); % Eosinophils 39.5 % (0-6); % Immature Granulocytes 0.2 % (0-0.5); % Lymphocytes 16.5 % (20.5-51.1); % Monocytes 6.4 % (1.7-9.3); % Neutrophils 36.5 % (42.2-75.2); Absolute Basophils 0.1 10^3/uL (0-0.2); Absolute Eosinophils 4.5 10^3/uL (0-0.7); Absolute Lymphocytes 1.9 10^3/uL (1.2-3.4); Absolute Monocytes 0.7 10^3/uL (0.1-0.6); Absolute Neutrophils 4.1 10^3/uL (1.4-6.5); Nucleated Red Blood Cells % 0 %
--- NOTE | 2024-01-17 09:45 | W.PN.HOSP.TC ---
Today's Communication/Plan
-
continue IV Lasix
follow labs
Assessment / Plan
Assessment / Plan
Assessment:
Acute HFrEF (nonischemic cardiomyopathy)
- CT PE shows no evidence of pulmonary embolism and there is some opacification of the right lower lobe which could represent atelectasis/pneumonia and small right pleural effusion
- Cardiac BNP of 10,000
- EKG shows nonspecific intraventricular conduction block with PVCs, sinus tachycardia
- Echo: EF 10%. Dilated cardiomyopathy with severely reduced left ventricular systolic function, Dilated right ventricle with mildly reduced RV systolic function, mild to mdoerate MR, TR
- continue IV Lasix, requires intensive monitoring of I/Os, weights, lytes
- continue beta-miguel
- s/p Cath 01/15: clean coronaries, elevated filling pressures/wedge consistent with volume overload
- DCA cards following
- CHF education
Widespread hilar lymphadenopathy likely reactive from recent viral infection (URI)
- no cough/fevers to indicate current infection
- malignancy on differential but no alarm symptoms per history
- repeat CT scan in 1-2 months and follow from there
Hyperkalemia secondary to abnormal potassium handling in the setting of CHF
- resolved, s/p Lokelma and diuresis
Abnormal Thyroid Imaging on CT
- TSH normal
- OP Thyroid US
Transaminitis, likely passive congestion from CHF
- no abdominal pain
- US Abd no acute findings
- LFTs improving
Asthma
- continue albuterol, Trelegy
- no recent flares
Eosinophilia
- obtain records of CBC from PCP
- no new recent meds
- no systemic symptoms of eosinophilic syndrome
- repeat CBC 2 weeks after dc
- OP f/u, may need OP Heme eval
DVT ppx: SC heparin
Code: Full
Anticipated Discharge: > 48 hours
Subjective/Interval History
-
Date of Service: January 17, 2024
s/p cath with high pressures/wedge, clear coronaries
on IV Lasix
reports SOB improving
weight is down 1kg further
Objective Data
-
Labs:
Laboratory Results
01/17/24
06:57
WBC 11.3 H
Hgb 14.2
Hct 43.8
Plt Count 218
Sodium 141
Potassium 4.2
Chloride 102
Carbon Dioxide 27
BUN 23 H
Creatinine 1.1 H
Glucose 86
Calcium 9.1
Vital Signs:
Vital Signs
Temp Pulse Resp BP Pulse Ox
98.4 F 77 16 107/69 93
01/17/24 07:20 01/17/24 08:47 01/17/24 07:20 01/17/24 08:47 01/17/24 08:43
I&O
01/16/24 01/17/24 01/18/24
06:59 06:59 06:59
Intake Total 900 / 900 1040 / 1040
Output Total 2450 / 2450 2400 / 2400
Balance -1550 / -1550 -1360 / -1360
Physical Exam
-
General: No Apparent Distress
HEENT: Normocephalic
Respiratory: Negative Wheezes
Cardiac: Regular Rhythm
GI: Soft
Genito-urinary: No Costovertebral Tender
Musculoskeletal: No Edema
Neuro: AO x 3
Psych: Calm
Data Reviewed
-
Total Time Spent with Patient (in minutes): 51
Labs: Labs Reviewed by me
[2024-01-17 10:55] VITALS: BMI 38.4
--- NOTE | 2024-01-17 10:57 | PTCARENOTE ---
Pt to remain on telemetry per Dr. Beckham.
--- NOTE | 2024-01-17 11:10 | PTCARENOTE ---
Pt had 13 beat VT noted on telemetry; pt standing at bedside; no c/o. Dr. Beckham notified. Will continue to monitor.
[2024-01-17 11:15] VITALS: BP 102/71
--- NOTE | 2024-01-17 11:53 | W.PN.CARDCBS ---
Addendum entered and electronically signed by Cami Clemons MD 01/17/24 16:44:
I saw and examined the patient.
The Profiling Machine Setup Operator's note was reviewed and I agree with the note.
Comment: Patient is doing well and does not offer any significant complaints. She tells me that her breathing has significantly improved since presentation. She was able to walk the halls today which is a significant improvement.
Telemetry with recurrence of nonsustained VT, thankfully asymptomatic. Vital signs and lab work reviewed. On exam patient is well-appearing, in no acute distress, alert and oriented x 3, obese, is at bedside, normal S1 and S2, no murmurs,
rubs or gallops, right radial access site without any issues with dressing still in place and no evidence of hematoma or bruit, abdomen is soft, nontender, nondistended with active bowel sounds, warm extremities.
Recommendations:
1. Optimization of goal-directed medical therapy for nonischemic cardiomyopathy. We will initiate Toprol-XL 12.5 mg today in the setting of frequent NSVT and increase to 25 mg daily starting tomorrow.
2. We will continue IV diuretics for another 24 hours and then switch to p.o. for maintenance
3. She is tolerating losartan and Farxiga well with stable renal function.
4. Continue to monitor on telemetry. Daily upright weights, ins and outs. Replete electrolytes as needed.
5. Outpatient referral for cardiac rehab.
6. Suspect discharge Monday versus Monday.
Cami Clemons MD, [facility], [facility]
Original Note:
Today's Communication / Plan
-
Adding Toprol XL 12.5 mg tonight and then 25 mg daily starting tomorrow
Cont losartan and Farxiga
Cont to diurese
Impression / Plan
-
Family Physician: Brad Murray
Lathe Scalper Operator: None prior to admission, initial consultation Dr. Ovalle
Impression:
Presented 01/13/2024 with shortness of breath, orthopnea and chest pain
Acute heart failure with reduced ejection fraction, proBNP 10,800
NICM
Left bundle branch block
Abnormal CT scan with hilar adenopathy and enlarged thyroid gland
History of asthma
Left bundle branch block
Hyperkalemia�resolved
Mild renal insufficiency
Abnormal liver function test
No obstructive CAD by cath 01/16/24
Echo 01/15/2024: EF 10%. Dilated cardiomyopathy with severely reduced left ventricular function. Dilated right ventricle with mildly reduced RV systolic function, mild to moderate MR, mild to moderate TR. PAP 58 mmHg. IVC is dilated and does not
collapse.
Plan:
-Weight is down 19 lbs from admission with Lasix 40 mg IV BID diuresis. Cre stable at 1.1, will continue to diurese. Patient is symptomatically improved.
-CM EF 10% was a new diagnosis this admission. No evidence of obstructive CAD on cath.
-Reduced CO/CI with elevated SVR on RHC 01/16/24. Coreg held and started on losartan 01/16/24.
-Reviewed GDMT with patient and 01/17/24. Talked about adding additional meds as BP tolerate. Reviewed BB, VISHAL/ARB/ARNI, SGLT-2, spironolactone. Also reviewed repeat echo after 3 months of optimal medical therapy. Briefly reviewed possible
need for ICD pending improvement in EF.
-Tele reviewed by me 01/17/24 and there was a 13 beat run of posisble NSVT, patient was asymptomatic. Potassium normal. Will add low dose Toprol XL 12.5 mg 01/17/24 PM and then 25 mg daily starting 01/18/24.
-Cont losartan 25 mg daily
-Cont Farxiga 10 mg daily
-LFTs improving with diuresis
-Abnormal CT scan 'Widespread mediastinal and to a lesser extent bilateral hilar low-attenuation lymphadenopathy. Although findings may be on an inflammatory/infectious basis, malignancy is the diagnosis of exclusion.' [place] to be due to recent
viral illness but will need repeat CT scan as outpt in 1 to 2 months
-Normal TSH, but enlarged thyroid on CT imaging. Patient should have an outpatient thyroid u/s
HPI: Merle has a history of asthma. She has had shortness of breath for several weeks. She initially thought it might be asthma. However she has noted short of breath for the past 2 nights with lying flat. She has noted some edema as well.
She also had chest pain 3-4 nights ago described as an ache. It lasted an hour to hour and a half and did not recur. She came to the ER and is admitted with CHF.
Progress Note - Lathe Scalper Operator
Subjective
Date of Service: January 17, 2024
Feeling much better, feels industrial editor
Objective
Labs:
01/17/24 06:57
01/17/24 06:57
Labs
Hgb 14.2 g/dL (12.0-16.0) 01/17/24 06:57
Hct 43.8 % (37.0-47.0) 01/17/24 06:57
Plt Count 218 10^3/uL (130-400) 01/17/24 06:57
Sodium 141 mmol/L (135-145) 01/17/24 06:57
Potassium 4.2 mmol/L (3.5-5.1) 01/17/24 06:57
BUN 23 mg/dl (7-17) H 01/17/24 06:57
Creatinine 1.1 mg/dL (0.6-1.0) H 01/17/24 06:57
Glucose 86 mg/dl (70-99) 01/17/24 06:57
Vital Signs and I&O:
Vital Signs
Temp Pulse Resp BP Pulse Ox
98.4 F 77 16 107/69 93
01/17/24 07:20 01/17/24 08:47 01/17/24 07:20 01/17/24 08:47 01/17/24 08:43
Vital Signs
Temp Pulse Resp BP Pulse Ox
98.4 F 77 16 107/69 93
01/17/24 07:20 01/17/24 08:47 01/17/24 07:20 01/17/24 08:47 01/17/24 08:43
Intake & Output
01/15/24 01/16/24 01/17/24 01/18/24
06:59 06:59 06:59 06:59
Intake Total 240 / 240 900 / 900 1040 / 1040
Output Total 3620 / 3620 2450 / 2450 2400 / 2400
Balance -3380 / -3380 -1550 / -1550 -1360 / -1360
Physical Exam
Physical Exam
GEN: AAOx3
HEENT: EOMI
LUNGS: No audible wheeze
CV: SR on tele
ABD: ND
EXT: No edema
NEURO: Gross non-focal
SKIN: No rash
[2024-01-17 15:35] VITALS: BP 111/76
--- NOTE | 2024-01-17 16:35 | PTCARENOTE ---
Pt AAO x3, FRENCH well, ambulatory in room/to BR; erica well. VSS. Telemetry:NSR with BBB; occ PVC's. On room air- pulse ox 96%, no SOB noted. Abd obeses,soft, erica PO well. Voiding clear yellow urine on specipan without difficulty. Resting
comfortably at present. Will continue to monitor.
[2024-01-17] MEDS: TOPROL XL 12.5 MG PO (18:00)
[2024-01-17 18:15] VITALS: BP 102/59
[2024-01-17] MEDS: SENOKOT-S PO (19:27)
[2024-01-17 23:24] VITALS: BP 110/70
[2024-01-18 04:37] VITALS: BP 105/64
[2024-01-18 06:00] VITALS: BMI 37.9
[2024-01-18 07:35] VITALS: BP 117/75
[2024-01-18 07:57] LABS: Hematocrit 47.2 % (37.0-47.0); Hemoglobin 15.4 g/dL (12.0-16.0); Mean Corp Hgb Conc. 32.6 g/dL (33.0-37.0); Mean Corpuscular Hgb 28.4 pg (27.0-31.0); Mean Corpuscular Volume 87.1 fL (81.0-99.0); Mean Platelet Volume 10.7 fL (7.4-10.4); Platelet Count 259 10^3/uL (130-400); Red Blood Cell Count 5.42 10^6/uL (4.20-5.40); Red Cell Dist. Width 14.6 % (11.5-14.5); White Blood Cell Count 10.9 10^3/uL (4.8-10.8)
[2024-01-18 08:19] LABS: Blood Urea Nitrogen 26 mg/dl (7-17); Calcium 9.6 mg/dl (8.4-10.2); Carbon Dioxide 27 mmol/L (22-30); Chloride 100 mmol/L (98-107); Estimated Creatinine Clearance 71 ml/min; Glucose 90 mg/dl (70-99); Magnesium 2.2 mg/dl (1.6-2.3); Potassium 4.6 mmol/L (3.5-5.1); Sodium 139 mmol/L (135-145); eGFR > 60.00
[2024-01-18 08:20] LABS: % Basophils 1.1 % (0-2); % Eosinophils 40.2 % (0-6); % Immature Granulocytes 0.3 % (0-0.5); % Lymphocytes 13.4 % (20.5-51.1); % Monocytes 6.6 % (1.7-9.3); % Neutrophils 38.4 % (42.2-75.2); Absolute Basophils 0.1 10^3/uL (0-0.2); Absolute Eosinophils 4.4 10^3/uL (0-0.7); Absolute Lymphocytes 1.5 10^3/uL (1.2-3.4); Absolute Monocytes 0.7 10^3/uL (0.1-0.6); Absolute Neutrophils 4.2 10^3/uL (1.4-6.5); Nucleated Red Blood Cells % 0 %
[2024-01-18] MEDS: FARXIGA 10 MG PO (08:38)
[2024-01-18] MEDS: COZAAR 25 MG PO (08:38)
[2024-01-18] MEDS: LASIX 40 MG IV ×2 (08:39→16:33)
[2024-01-18] MEDS: TOPROL XL 25 MG PO (08:39)
[2024-01-18] MEDS: MIRALAX PO (08:39)
[2024-01-18] MEDS: SENOKOT-S PO (08:40)
--- NOTE | 2024-01-18 09:39 | W.PN.HOSP.TC ---
Today's Communication/Plan
-
continue IV Lasix
DC planning in 24-48 hours
Assessment / Plan
Assessment / Plan
Assessment:
Acute HFrEF (nonischemic cardiomyopathy)
- CT PE shows no evidence of pulmonary embolism and there is some opacification of the right lower lobe which could represent atelectasis/pneumonia and small right pleural effusion
- Cardiac BNP of 10,000
- EKG shows nonspecific intraventricular conduction block with PVCs, sinus tachycardia
- Echo: EF 10%. Dilated cardiomyopathy with severely reduced left ventricular systolic function, Dilated right ventricle with mildly reduced RV systolic function, mild to mdoerate MR, TR
- continue IV Lasix, requires intensive monitoring of I/Os, weights, lytes
- continue Toprol XL, Losartan, Fargixa
- s/p Cath 01/15: clean coronaries, elevated filling pressures/wedge consistent with volume overload
- DCA cards following
- CHF education
Widespread hilar lymphadenopathy likely reactive from recent viral infection (URI)
- no cough/fevers to indicate current infection
- malignancy on differential but no alarm symptoms per history
- repeat CT scan in 1-2 months and follow from there
Hyperkalemia secondary to abnormal potassium handling in the setting of CHF
- resolved, s/p Lokelma and diuresis
Abnormal Thyroid Imaging on CT
- TSH normal
- OP Thyroid US
Transaminitis, likely passive congestion from CHF
- no abdominal pain
- US Abd no acute findings
- LFTs improving
Asthma
- continue albuterol, Trelegy
- no recent flares
Eosinophilia
- obtain records of CBC from PCP
- no new recent meds
- no systemic symptoms of eosinophilic syndrome
- repeat CBC 2 weeks after dc
- OP f/u, may need OP Heme eval
DVT ppx: SC heparin
Code: Full
Anticipated Discharge: 24 - 48 hours
Subjective/Interval History
-
Date of Service: January 18, 2024
weight further down 1.5 kg
denies sob or chest pain
ambulating well
Objective Data
-
Labs:
Laboratory Results
01/18/24
07:31
WBC 10.9 H
Hgb 15.4
Hct 47.2 H
Plt Count 259
Sodium 139
Potassium 4.6
Chloride 100
Carbon Dioxide 27
BUN 26 H
Creatinine 1.0
Glucose 90
Calcium 9.6
Vital Signs:
Vital Signs
Temp Pulse Resp BP Pulse Ox
98 F 76 16 117/75 96
01/18/24 07:35 01/18/24 07:35 01/18/24 07:35 01/18/24 07:35 01/18/24 07:35
I&O
01/17/24 01/18/24 01/19/24
06:59 06:59 06:59
Intake Total 1040 / 1040 1380 / 1380
Output Total 2400 / 2400 2960 / 2960
Balance -1360 / -1360 -1580 / -1580
Physical Exam
-
General: No Apparent Distress
HEENT: Normocephalic
Respiratory: Negative Wheezes
Cardiac: Regular Rhythm and S1/S2
GI: Soft
Genito-urinary: No Costovertebral Tender
Musculoskeletal: No Edema
Neuro: AO x 3
Psych: Calm
Data Reviewed
-
Total Time Spent with Patient (in minutes): 41
Labs: Labs Reviewed by me
[2024-01-18 11:20] VITALS: BP 107/68
--- NOTE | 2024-01-18 12:44 | W.PN.CARDCBS ---
Addendum entered and electronically signed by Angel Mclain DO 01/18/24 17:29:
I saw and examined the patient.
The Practice Managers's note was reviewed and I agree with the note.
Comment:
Plan:
Continue IV diuresis
Cont GDMT
Discussed outpt reeval of EF with echo on comprehensive medical therapy
Reviewed her cath.
Discussed that she may be considered for ICD as outpt if her EF fails to improve.
Outpt follow up to be arranged.
Original Note:
Today's Communication / Plan
-
Ongoing diuresis
Likely d/c to home tomorrow
Impression / Plan
-
Family Physician: Brad Murray
Packaging Design Engineer: None prior to admission, initial consultation Dr. Ovalle
Impression:
Presented 01/13/2024 with shortness of breath, orthopnea and chest pain
Acute heart failure with reduced ejection fraction, proBNP 10,800
NICM
Left bundle branch block
Abnormal CT scan with hilar adenopathy and enlarged thyroid gland
History of asthma
Left bundle branch block
Hyperkalemia�resolved
Mild renal insufficiency
Abnormal liver function test
No obstructive CAD by cath 01/16/24
Echo 01/15/2024: EF 10%. Dilated cardiomyopathy with severely reduced left ventricular function. Dilated right ventricle with mildly reduced RV systolic function, mild to moderate MR, mild to moderate TR. PAP 58 mmHg. IVC is dilated and does not
collapse.
Plan:
-Weight is down 20+ lbs from admission with Lasix 40 mg IV BID diuresis. Cre stable at 1.0, will continue to diurese.
-CM EF 10% was a new diagnosis this admission. No evidence of obstructive CAD on cath.
-Reduced CO/CI with elevated SVR on RHC 01/16/24.
-New to losartan 25 mg daily 01/16/24.
-New to Toprol XL 25 mg daily as of 01/17/24.
-New to Farxiga 10 mg daily this admission.
-Reviewed plan to repeat echo after 3 months of optimal medical therapy. Briefly reviewed possible need for ICD pending improvement in EF.
-Potassium improved with additional supplementation
-Tele reviewed by me 01/17/24 and there was a 13 beat run of posisble NSVT, patient was asymptomatic. Potassium normal. Will add low dose Toprol XL 12.5 mg 01/17/24 PM and then 25 mg daily starting 01/18/24.
-Cont losartan 25 mg daily
-Cont Farxiga 10 mg daily
-LFTs improving with diuresis
-Abnormal CT scan 'Widespread mediastinal and to a lesser extent bilateral hilar low-attenuation lymphadenopathy. Although findings may be on an inflammatory/infectious basis, malignancy is the diagnosis of exclusion.' [place] to be due to recent
viral illness but will need repeat CT scan as outpt in 1 to 2 months
-Normal TSH, but enlarged thyroid on CT imaging. Patient should have an outpatient thyroid u/s
-Cardiac rehab consulted 01/17/24
HPI: Merle has a history of asthma. She has had shortness of breath for several weeks. She initially thought it might be asthma. However she has noted short of breath for the past 2 nights with lying flat. She has noted some edema as well.
She also had chest pain 3-4 nights ago described as an ache. It lasted an hour to hour and a half and did not recur. She came to the ER and is admitted with CHF.
Progress Note - Packaging Design Engineer
Subjective
Date of Service: January 18, 2024
Less SOB
Objective
Labs:
01/18/24 07:31
01/18/24 07:31
Labs
Hgb 15.4 g/dL (12.0-16.0) 01/18/24 07:31
Hct 47.2 % (37.0-47.0) H 01/18/24 07:31
Plt Count 259 10^3/uL (130-400) 01/18/24 07:31
Sodium 139 mmol/L (135-145) 01/18/24 07:31
Potassium 4.6 mmol/L (3.5-5.1) 01/18/24 07:31
BUN 26 mg/dl (7-17) H 01/18/24 07:31
Creatinine 1.0 mg/dL (0.6-1.0) 01/18/24 07:31
Glucose 90 mg/dl (70-99) 01/18/24 07:31
Vital Signs and I&O:
Vital Signs
Temp Pulse Resp BP Pulse Ox
97.9 F 84 20 107/68 98
01/18/24 11:20 01/18/24 11:20 01/18/24 11:20 01/18/24 11:20 01/18/24 11:20
Vital Signs
Temp Pulse Resp BP Pulse Ox
97.9 F 84 20 107/ 98
01/18/24 11:20 01/18/24 11:20 01/18/24 11:20 01/18/24 11:20 01/18/24 11:20
Intake & Output
01/16/24 01/17/24 01/18/24 01/19/24
06:59 06:59 06:59 06:59
Intake Total 900 / 900 1040 / 1040 1380 / 1380
Output Total 2450 / 2450 2400 / 2400 2960 / 2960
Balance -1550 / -1550 -1360 / -1360 -1580 / -1580
Physical Exam
Physical Exam
GEN: AAOx3
HEENT: EOMI
LUNGS: No audible wheeze
CV: SR on tele
ABD: ND
EXT: No edema
NEURO: Gross non-focal
SKIN: No rash
[2024-01-18 15:25] VITALS: BP 99/64
--- NOTE | 2024-01-18 17:56 | CM ---
CM continues to follow for discharge planning. She continues with cardiac rhythm issues and is not ready for discharge.
Eleazar Carey RN Case manager.; following Merle after discharge for support and can be reached at [phone].
Plan: Discharge to home with no needs at this time. Pt has support of Eleazar Strapping Machine Operator in the community as needed.
[2024-01-18 19:49] VITALS: BP 108/75
[2024-01-18] MEDS: SENOKOT-S 1 TABLET PO (20:49)
[2024-01-18 23:00] VITALS: BP 109/67
[2024-01-19 03:43] VITALS: BP 121/74
[2024-01-19 06:00] VITALS: BMI 37.8
[2024-01-19 07:42] LABS: Hematocrit 47.8 % (37.0-47.0); Hemoglobin 15.9 g/dL (12.0-16.0); Mean Corp Hgb Conc. 33.3 g/dL (33.0-37.0); Mean Corpuscular Hgb 28.8 pg (27.0-31.0); Mean Corpuscular Volume 86.4 fL (81.0-99.0); Mean Platelet Volume 10.7 fL (7.4-10.4); Platelet Count 257 10^3/uL (130-400); Red Blood Cell Count 5.53 10^6/uL (4.20-5.40); Red Cell Dist. Width 14.5 % (11.5-14.5); White Blood Cell Count 10.8 10^3/uL (4.8-10.8)
[2024-01-19 07:43] VITALS: BP 112/65
[2024-01-19] MEDS: MIRALAX 17 GRAMS PO (07:56)
[2024-01-19] MEDS: FARXIGA 10 MG PO (07:56)
[2024-01-19] MEDS: COZAAR 25 MG PO (07:56)
[2024-01-19] MEDS: LASIX 40 MG IV (07:56)
[2024-01-19] MEDS: TOPROL XL 25 MG PO (07:56)
[2024-01-19] MEDS: SENOKOT-S 1 TABLET PO (07:56)
[2024-01-19 08:19] LABS: Blood Urea Nitrogen 33 mg/dl (7-17); Calcium 9.8 mg/dl (8.4-10.2); Carbon Dioxide 27 mmol/L (22-30); Chloride 96 mmol/L (98-107); Estimated Creatinine Clearance 71 ml/min; Glucose 93 mg/dl (70-99); Potassium 4.4 mmol/L (3.5-5.1); Sodium 135 mmol/L (135-145); eGFR > 60.00
--- NOTE | 2024-01-19 10:22 | W.PN.CARDCBS ---
Addendum entered and electronically signed by Davon Hebert MD 01/19/24 14:49:
I saw and examined the patient.
The Financial Advocate's note was reviewed and I agree with the note.
Comment: Briefly, 58-year-old woman presenting with dyspnea diagnosed with acute heart failure with reduced ejection fraction (EF 10%), nonischemic cardiomyopathy and left bundle branch block
Her symptoms have resolved with IV diuresis and she is able to ambulate without significant dyspnea
Plan to discharge on Lasix 40 mg twice daily
We discussed the importance of salt restriction and daily weights
New to losartan, metoprolol and Jardiance this admission
Plan to add spironolactone as an outpatient as blood pressure will tolerate
Telemetry reviewed, episode of nocturnal nonsustained VT
Patient tells me that she was asleep at the time and therefore was asymptomatic
Beta-miguel uptitrated
We will arrange for outpatient plasterer tender
Should also be considered for sleep study
We reviewed that she may benefit from TERRAZZO LAYER HELPER-D if left ventricular systolic function does not significantly improve at 90 days
Stable for discharge from my perspective, outpatient follow-up has been arranged
Original Note:
Today's Communication / Plan
-
Increase Toprol to 25 mg BID
Check LFTs, magnesium
Discharged home on Lasix 40 mg twice daily
BMP 1 week
Will have patient go home on 2-week rhythm*monitor
Impression / Plan
-
Family Physician: Brad Murray
College Athlete: None prior to admission, initial consultation Dr. Ovalle
Impression:
Presented 01/13/2024 with shortness of breath, orthopnea and chest pain
Acute heart failure with reduced ejection fraction, proBNP 10,800
NICM
Left bundle branch block
Abnormal CT scan with hilar adenopathy and enlarged thyroid gland
History of asthma
Left bundle branch block
Hyperkalemia�resolved
Mild renal insufficiency
Abnormal liver function test
No obstructive CAD by cath 01/16/24
Cardiac catheterization 01/16/2024: No obstructive coronary artery disease. Significantly elevated right and left-sided filling pressures with reduced cardiac output in the setting of severe pulmonary hypertension and elevated systemic vascular
resistance. RA (m) : 19; RV (s/d,m) : 59/15, 23; PA (s/d, m) : 62/33, 44; PCWP (m) : 37; PA saturation: 59.7% on room air; AO saturation: 91.4% on room air; SVC saturation: 63.9% on room air
Cardiac Output : 3.46 L/min; Cardiac Index : 1.67 L/min/m-2; Systemic vascular resistance: 1711 dsc^(-5); Pulmonary vascular resistance: 4.63 moses unit
Echo 01/15/2024: EF 10%. Dilated cardiomyopathy with severely reduced left ventricular function. Dilated right ventricle with mildly reduced RV systolic function, mild to moderate MR, mild to moderate TR. PAP 58 mmHg. IVC is dilated and does not
collapse.
Plan:
-Presented 01/13/2024 with shortness of breath, orthopnea and chest pain. Found to be in acute heart failure with reduced ejection fraction, proBNP 10,800
-CM EF 10% was a new diagnosis this admission. No evidence of obstructive CAD on cath.
-Reduced CO/CI with elevated SVR on RHC 01/16/24.
-Weight is down 20+ lbs from admission with Lasix 40 mg IV BID diuresis. Cre stable at 1.0, will continue to diurese. Wpuld send home on Lasix 40 mg BID. Will need BMP in 7 days
-Continue GDMT: New to losartan 25 mg daily 01/16/24, New to Toprol XL 25 mg daily as of 01/17/24, New to Farxiga 10 mg daily this admission. Consider adding Aldactone as outpatient if BP allows
-Reviewed plan to repeat echo after 3 months of optimal medical therapy. Briefly reviewed possible need for ICD pending improvement in EF.
-Tele reviewed 01/17/24 and there was a 13 beat run of possible NSVT and another episode 01/19/2024, patient was asymptomatic. Potassium normal. Will check magnesium level.
-Added low dose Toprol XL 12.5 mg 01/17/24 PM and then 25 mg daily 01/18/24. Increase to 25 mg BID 01/19/24.
-Will send home on 2-week rhythm*monitor
-LFTs improving with diuresis; will repeat
-Abnormal CT scan 'Widespread mediastinal and to a lesser extent bilateral hilar low-attenuation lymphadenopathy. Although findings may be on an inflammatory/infectious basis, malignancy is the diagnosis of exclusion.' [place] to be due to recent
viral illness but will need repeat CT scan as outpt in 1 to 2 months
-Normal TSH, but enlarged thyroid on CT imaging. Patient should have an outpatient thyroid u/s
-Cardiac rehab consulted 01/17/24
HPI: Merle has a history of asthma. She has had shortness of breath for several weeks. She initially thought it might be asthma. However she has noted short of breath for the past 2 nights with lying flat. She has noted some edema as well.
She also had chest pain 3-4 nights ago described as an ache. It lasted an hour to hour and a half and did not recur. She came to the ER and is admitted with CHF.
Progress Note - College Athlete
Subjective
Date of Service: January 19, 2024
Patient seen and examined. Patient sitting in bed. Patient reports she is feeling well without chest pain, shortness breath, dizziness or lightheadedness
Objective
Labs:
01/19/24 07:22
01/19/24 07:22
Labs
Hgb 15.9 g/dL (12.0-16.0) 01/19/24 07:22
Hct 47.8 % (37.0-47.0) H 01/19/24 07:22
Plt Count 257 10^3/uL (130-400) 01/19/24 07:22
Sodium 135 mmol/L (135-145) 01/19/24 07:22
Potassium 4.4 mmol/L (3.5-5.1) 01/19/24 07:22
BUN 33 mg/dl (7-17) H 01/19/24 07:22
Creatinine 1.0 mg/dL (0.6-1.0) 01/19/24 07:22
Glucose 93 mg/dl (70-99) 01/19/24 07:22
Vital Signs and I&O:
Vital Signs
Temp Pulse Resp BP Pulse Ox
98.1 F 78 20 112/65 100
01/19/24 07:43 01/19/24 07:43 01/19/24 07:43 01/19/24 07:43 01/19/24 07:43
Vital Signs
Temp Pulse Resp BP Pulse Ox
98.1 F 78 20 112/65 100
01/19/24 07:43 01/19/24 07:43 01/19/24 07:43 01/19/24 07:43 01/19/24 07:43
Intake & Output
01/17/24 01/18/24 01/19/24 01/20/24
06:59 06:59 06:59 06:59
Intake Total 1040 / 1040 1380 / 1380 1080 / 1080
Output Total 2400 / 2400 2960 / 2960 1700 / 1700
Balance -1360 / -1360 -1580 / -1580 -620 / -620
Physical Exam
Physical Exam
GEN: No distress, awake, Ox3
HEENT: supple, anicteric, mmm
LUNGS: CTA, no wheezes/rales
CV: Reg, S1/S2, no murmur, rub or gallop
ABD: soft, BS+, NT/ND
EXT: No edema, clubbing or cyanosis
NEURO: Gross non-focal
SKIN: No rash, warm, dry, pink
[2024-01-19 11:31] LABS: ALT (SGPT) 64 U/L (0-35); AST (SGOT) 46 U/L (14-36); Magnesium 2.2 mg/dl (1.6-2.3)
[2024-01-19 11:47] VITALS: BP 106/68
--- NOTE | 2024-01-19 12:30 | W.PN.HOSP.TC ---
Today's Communication/Plan
-
dc to home
Assessment / Plan
Assessment / Plan
Assessment:
Acute HFrEF (nonischemic cardiomyopathy)
- CT PE shows no evidence of pulmonary embolism and there is some opacification of the right lower lobe which could represent atelectasis/pneumonia and small right pleural effusion
- Cardiac BNP of 10,000
- EKG shows nonspecific intraventricular conduction block with PVCs, sinus tachycardia
- Echo: EF 10%. Dilated cardiomyopathy with severely reduced left ventricular systolic function, Dilated right ventricle with mildly reduced RV systolic function, mild to mdoerate MR, TR
- dc on Lasix BID
- continue Toprol XL, Losartan, Fargixa
- BMP in 1 week
- s/p Cath 01/15: clean coronaries, elevated filling pressures/wedge consistent with volume overload
- DCA cards OP f/u
- CHF education
Widespread hilar lymphadenopathy likely reactive from recent viral infection (URI)
- no cough/fevers to indicate current infection
- malignancy on differential but no alarm symptoms per history
- repeat CT scan in 1-2 months and follow from there
Hyperkalemia secondary to abnormal potassium handling in the setting of CHF
- resolved, s/p Lokelma and diuresis
Abnormal Thyroid Imaging on CT
- TSH normal
- OP Thyroid US
Transaminitis, likely passive congestion from CHF
- no abdominal pain
- US Abd no acute findings
- LFTs improving
Asthma
- continue albuterol, Trelegy
- no recent flares
Eosinophilia
- obtain records of CBC from PCP
- no new recent meds
- no systemic symptoms of eosinophilic syndrome
- repeat CBC 1 week after dc
- OP f/u, may need OP Heme eval
DVT ppx: SCDs
Code: Full
More than 30 minutes spent in discharge including
Final examination of the patient
Summarizing hospital stay
Instructions for continuing care to all relevant caregivers
Preparation of discharge records, prescriptions, and referral forms
Total time spent (in minutes): 41
Anticipated Discharge: Today
Subjective/Interval History
-
Date of Service: January 19, 2024
feels well, eager for home
Objective Data
-
Labs:
Laboratory Results
01/19/24
07:22
WBC 10.8
Hgb 15.9
Hct 47.8 H
Plt Count 257
Sodium 135
Potassium 4.4
Chloride 96 L
Carbon Dioxide 27
BUN 33 H
Creatinine 1.0
Glucose 93
Calcium 9.8
AST 46 H
ALT 64 H
Vital Signs:
Vital Signs
Temp Pulse Resp BP Pulse Ox
98.1 F 79 22 106/68 98
01/19/24 11:47 01/19/24 11:47 01/19/24 11:47 01/19/24 11:47 01/19/24 11:47
I&O
01/18/24 01/19/24 01/20/24
06:59 06:59 06:59
Intake Total 1380 / 1380 1080 / 1080
Output Total 2960 / 2960 1700 / 1700
Balance -1580 / -1580 -620 / -620
Physical Exam
-
General: No Apparent Distress
HEENT: Normocephalic and Atraumatic
Respiratory: Negative Wheezes
Cardiac: Regular Rhythm and S1/S2
GI: Soft
Genito-urinary: No Costovertebral Tender
Neuro: AO x 3
Psych: Calm
Data Reviewed
-
Total Time Spent with Patient (in minutes): 45
Labs: Labs Reviewed by me
--- NOTE | 2024-01-19 12:36 | W.DS.TRANS ---
DC Summary - Automotive Professional
-
Discharge Instructions:
Sleep Apnea Risk Low
Discharge Diagnosis/Procedures nonischemic cardiomyopathy, heart failure,
enlarged thyroid, mediastinal lymph nodes (small
), eosinophilia
Diet Low Cholesterol,2 Gram Sodium,Restrict fluids to
48 oz
Activity As tolerated
Driving Restrictions No driving for 24 hours
Blood Work CBC (for eosinophilia) and BMP (for electrolyte
monitoring) in 1 week - script given.
Others Tests follow up CT 1-2 months to monitor lymph nodes
and thyroid ultrasound (to be ordered as
outpatient by PCP)
Specialty Instructions Weigh Daily
Instructions: *PCP/Other Magistrate Heart Failure Instructions
Stand-Alone Forms:
Changes to Home Medications: No
Discharge Medications:
DC Medications w/original date entered in [employer]
albuterol sulfate 90 mcg/actuation aerosol inhaler 1 puff inhalation R [id number] PRN wheezing ##1 06/24/13
benzonatate 100 mg capsule 100 mg PO TIDPRN PRN cough #30 caps 06/24/13
empagliflozin 10 mg tablet (Jardiance) 10 mg PO DAILY #90 tabs 01/16/24
furosemide 40 mg tablet (Lasix) 40 mg PO BID #60 tabs 01/19/24
losartan 25 mg tablet 25 mg PO DAILY #30 tabs 01/19/24
metoprolol succinate 25 mg tablet,extended release 24 hr 25 mg PO BID #60 tabs 01/19/24
Home Medication Changes
Pending Results: No
Total time spent discharging patient (in min): 41
--- NOTE | 2024-01-19 14:34 | W.HF.CON ---
Heart Failure
- LV Function
Left ventricular function study result: LV Ejection fraction </= 35%
Ejection Fraction Percentage: 10
- ARNI
Patient already on ARNI: No
Heart Failure ARNI Contraindication: Hypotension
- ACEI/ARB
Patient already on ACEI/ARB: Yes
- Beta Lela
Patient already on Evidence Based Beta Lela: Yes
- Mineralocorticord Receptor Antagonist
Patient already on MRA: No
Heart Failure MRA Contraindication: Hypotension
- SGLT-2 Inhibitor
Patient already on SGLT-2 Inhibitor: Yes
- NYHA CHF Classification
NYHA CHF Classification Level: Class III - Symptoms w/ min exertion, interferes w/ nml daily activity
- ACC/AHA Stage
ACC/AHA Stage: Stage C: Symptomatic Heart Failure
--- NOTE | 2024-01-19 14:43 | CM ---
Met with patient at bedside;
Family will transport home
Plan: discharge to home with 14 day heart monitor; no other services
--- NOTE | 2024-01-19 18:33 | PTCARENOTE ---
Spoke with patient over the phone after confirming with MD Beckham that prior authorization for Jardiance will come from cardiology office and that she can call them Monday to make them aware of this need. Pt stated that she understood teaching.
== END 2024-01-19 15:57 | disposition home or self-care (01) | DRG 287 ==
LOC: 4 EAST ACU 22:56
PROVIDERS: Internal Medicine Interventional Cardiology; Student in an Organized Health Care Education/Training Program; ADMITTING PHYSICIAN Hospitalist; ATTENDING PHYSICIAN Internal Medicine; CONSULT PHYSICIAN Internal Medicine Cardiovascular Disease; EMERGENCY PHYSICIAN Emergency Medicine; FAMILY PHYSICIAN Internal Medicine
PROC: 4A023N8 Measurement of Cardiac Sampling and Pressure, Bilateral, Percutaneous Approach (ICD-10-PCS; 2024-01-16)
PROC: B2111ZZ Fluoroscopy of Multiple Coronary Arteries using Low Osmolar Contrast (ICD-10-PCS; 2024-01-16)
DX: I50.21 Acute systolic (congestive) heart failure (principal); I42.0 Dilated cardiomyopathy; I47.20 Ventricular tachycardia, unspecified; J45.998 Other asthma; R07.89 Other chest pain; R60.0 Localized edema; I44.7 Left bundle-branch block, unspecified; E87.5 Hyperkalemia; R59.0 Localized enlarged lymph nodes; E04.9 Nontoxic goiter, unspecified; N28.9 Disorder of kidney and ureter, unspecified; I27.20 Pulmonary hypertension, unspecified; D72.10 Eosinophilia, unspecified; R74.01 Elevation of levels of liver transaminase levels; Z82.49 Family history of ischemic heart disease and other diseases of the circulatory system
CPT/HCPCS: 71275; 76700; 80048; 80053; 83735; 83880; 84443; 84450; 84460; 84484; 85025; 85027; 93005; 93306; 93460; 94640; 96374; 99152; 99153; 99285; C1894; Q9950; Q9967

== ENCOUNTER 2024-03-06 12:09 | Outpatient (RCR) | payer OTHER, SELFPAY | END 2024-03-06 23:59 | disposition home or self-care (01) | LOC: CRHB 12:09 | PROVIDERS: ATTENDING PHYSICIAN Internal Medicine Cardiovascular Disease | DX: I50.22 Chronic systolic (congestive) heart failure (principal) | CPT/HCPCS: 93797; 93798 ==

== ENCOUNTER 2024-03-29 13:10 | Outpatient (RCR) | payer OTHER, SELFPAY | END 2024-03-29 23:59 | disposition home or self-care (01) | LOC: CRHB 13:10 | PROVIDERS: ATTENDING PHYSICIAN Internal Medicine Cardiovascular Disease; FAMILY PHYSICIAN Internal Medicine | DX: I50.22 Chronic systolic (congestive) heart failure (principal) | CPT/HCPCS: 93797; 93798 ==

== ENCOUNTER 2024-04-15 10:06 | Outpatient (RCR) | payer OTHER, SELFPAY | END 2024-04-15 23:59 | disposition home or self-care (01) | LOC: CRHB 10:06 | PROVIDERS: ATTENDING PHYSICIAN Internal Medicine Cardiovascular Disease; FAMILY PHYSICIAN Internal Medicine | DX: I50.22 Chronic systolic (congestive) heart failure (principal) | CPT/HCPCS: 93797; 93798 ==

== ENCOUNTER → 2024-04-26 11:19 | Outpatient (REF) | payer OTHER, SELFPAY | LOC: RCS 11:19 | PROVIDERS: ATTENDING PHYSICIAN Physician Assistant Medical; FAMILY PHYSICIAN Internal Medicine | DX: I50.20 Unspecified systolic (congestive) heart failure (principal) | CPT/HCPCS: 93306 ==

== ENCOUNTER → 2024-08-16 14:56 | Outpatient (REF) | payer OTHER, SELFPAY | LOC: RCS 14:56 | PROVIDERS: ATTENDING PHYSICIAN Internal Medicine Cardiovascular Disease; FAMILY PHYSICIAN Internal Medicine | DX: I42.8 Other cardiomyopathies (principal) | CPT/HCPCS: 93306 ==